=== PATIENT | male | born 1965 | race Native Hawaiian/Other Pacific Islander ===

== ENCOUNTER 2018-01-27 20:11 | Emergency (ER) | payer OTHER ==
[~2018-01-27] VITALS: Ht 172.7 cm; Wt 141.5 kg
[~2018-01-27 20:11] MED LIST: ALEVE220 MG PO; ALLOPURINOL 30300 M2 PO; AMLODIPINE PO; ANTIHYPERTENSIVE PO; AVINZA120 MG PO; FLEXERIL PO; HCTZ PO; IBUPROFEN 400400 M2 PO; JANUVIA100 MG PO; KLOR-CON 1010 MEQ PO; LASIX 20 MG TAB20 MG PO; LISINOPRIL-HCT1 EAC2 PO; LOPRESSOR50; METFORMIN HCL500 MG PO; MORPHINE SULFAT30 M1 PO; MS CONTIN 60 MG60 M1 PO; NEURONTIN300 MG PO; NEURONTIN600 MG; NORVASC 2.5 MG2.5 M1 PO; OXYCODONE HCL30 MG PO; ROXICODONE30 M1 PO; TRIAMTERENE/HCT1 CA1 PO
[2018-01-27 20:26] VITALS: BP 128/82
[2018-01-27] MEDS ORDERED: SSD CREAM 1% 5050 GM TOP (20:53)
== END 2018-01-27 21:21 | disposition home or self-care (01) ==
LOC: M.ERS 20:11
DX: T23.231A Burn of second degree of multiple right fingers (nail), not including thumb, initial encounter (principal); T31.0 Burns involving less than 10% of body surface; G89.29 Other chronic pain; M54.9 Dorsalgia, unspecified; Z88.8 Allergy status to other drugs, medicaments and biological substances; X15.0XXA Contact with hot stove (kitchen), initial encounter; Y93.89 Activity, other specified; Y92.89 Other specified places as the place of occurrence of the external cause; Y99.8 Other external cause status

== ENCOUNTER 2018-11-11 21:03 | Emergency (ER) | payer OTHER ==
[~2018-11-11] VITALS: Ht 172.7 cm; Wt 131.5 kg
[~2018-11-11 21:03] MED LIST changes: +SSD CREAM 1% 5050 GM TOP
[2018-11-11] MEDS ORDERED: OCUFLOX5 ML OPHTHALMIC (21:52)
[2018-11-11 22:00] VITALS: BP 137/84
== END 2018-11-11 22:00 | disposition home or self-care (01) ==
LOC: M.ERS 21:03
DX: H10.9 Unspecified conjunctivitis (principal); S05.02XA Injury of conjunctiva and corneal abrasion without foreign body, left eye, initial encounter; M54.9 Dorsalgia, unspecified; G89.29 Other chronic pain; Z98.84 Bariatric surgery status; Z88.8 Allergy status to other drugs, medicaments and biological substances; X58.XXXA Exposure to other specified factors, initial encounter; Y93.89 Activity, other specified; Y92.89 Other specified places as the place of occurrence of the external cause; Y99.8 Other external cause status

== ENCOUNTER 2021-06-17 10:58 | Emergency (ER) | payer OTHER ==
[~2021-06-17] VITALS: Ht 172.7 cm; Wt 104.3 kg
[~2021-06-17 10:58] MED LIST changes: +OCUFLOX5 ML OPHTHALMIC
[2021-06-17 11:08] VITALS: BP 147/98
== END 2021-06-17 11:26 | disposition left against medical advice (07) ==
LOC: M.ERS 10:58
DX: R11.0 Nausea (principal); Z53.21 Procedure and treatment not carried out due to patient leaving prior to being seen by health care provider

== ENCOUNTER 2021-07-07 13:45 | Emergency (ER) | payer OTHER ==
[~2021-07-07] VITALS: Ht 172.7 cm; Wt 117.9 kg
[2021-07-07 16:05] LABS: ABSOLUTE EOSINOPHILS 0.1 thou/uL (0.0-0.7); ABSOLUTE LYMPHOCYTES 0.6 thou/uL (0.8-5.3); ABSOLUTE MONOCYTES 0.2 thou/uL (0.0-1.2); ABSOLUTE NEUTROPHILS 4.3 thou/uL (1.6-8.1); BASOPHILS 0.3 %; EOSINOPHILS 1.5 %; HEMATOCRIT 44.4 % (42.0-52.0); HEMOGLOBIN 14.8 gm/dL (14.0-18.0); LYMPHOCYTES 11.8 %; MCH 31.3 pg (26.0-34.0); MCHC 33.2 g/dL (28.0-37.0); MCV 94.2 fL (80.0-100.0); MONOCYTES 4.5 %; MPV 8.5 fl. (7.2-11.1); NUCLEATED RBCS 0 /100WBC; PLATELET COUNT* 164 thou/uL (150-400); POLYS 81.9 %; RBC 4.71 mil/uL (4.50-6.00); RDW-CV 14.9 % (10.5-14.5); WBC 5.2 thou/uL (4.0-11.0)
[2021-07-07 16:16] LABS: CALCIUM 8.2 mg/dL (8.5-10.1); CREATININE 1.1 mg/dL (0.6-1.3); POTASSIUM 4.4 mmol/L (3.5-5.1)
[2021-07-07 16:20] LABS: ALBUMIN 3.4 g/dL (3.4-5.0); TOTAL BILIRUBIN 0.7 mg/dL (<0.1-1.0); TOTAL PROTEIN 6.9 g/dL (6.4-8.2)
[2021-07-07] MEDS ORDERED: ZOFRAN ODT4 MG PO (17:00)
[2021-07-07 17:08] VITALS: BP 145/70
--- NOTE | 2021-07-08 10:53 | EKG ---
[place] [address] ELECTROCARDIOGRAM REPORT Name: JOSE MANUEL LEDBETTER Room: [facility]#: [id number] Admission: 07/07/21 Attend Phys: Discharge: 07/07/21 Date of : 69 Date of Service: 07/07/21 1454 Report #: [id number] THIS REPORT FOR: //name// [facility] ED Test Date: 2021-07-07 Test Time: 14:54:03 Pat Name: JOSE MANUEL LEDBETTER Department: Room: Gender: [employer] Director: BRITTANY : 1965 Requested By: Tomeka Garza Order Number: [id number] MD: Brennon Bello Measurements Intervals [place] Rate: 56 P: -11 VT: 137 QRS: 36 QRSD: 88 T: 25 QT: 419 QTc: 405 Interpretive Statements Sinus rhythm Abnormal R-wave progression, early transition Compared to ECG 07/29/2009 13:17:27 Sinus arrhythmia no longer present T-wave abnormality no longer present Possible ischemia no longer present Electronically Signed On 07-08-2021 10:53:26 ELECTRONIC GLUER by Brennon Bello [email or web address] <ELECTRONICALLY SIGNED> By: Brennon Bello MD, FAC 07/08/21 1053 1454 1454 Brennon Bello MD, FAC /EPI
== END 2021-07-07 17:08 | disposition home or self-care (01) ==
LOC: M.ERS 13:45
PROVIDERS: Nurse Practitioner Family
DX: F16.10 Hallucinogen abuse, uncomplicated (principal); R11.2 Nausea with vomiting, unspecified; R74.01 Elevation of levels of liver transaminase levels; Z98.84 Bariatric surgery status; Z98.890 Other specified postprocedural states; Z79.2 Long term (current) use of antibiotics; Z79.899 Other long term (current) drug therapy; Z88.8 Allergy status to other drugs, medicaments and biological substances